=== PATIENT | female | born 1955 | race Caucasian/White ===

== ENCOUNTER 2024-12-09 16:51 | Emergency (ER) | payer OTHER, SELFPAY ==
[2024-12-09 16:55] VITALS: BP 151/95
[2024-12-09 19:15] VITALS: BP 149/88
--- NOTE | 2024-12-09 19:20 | ED.GENMED ---
History of Present Illness
General
Chief Complaint: DVT/Possible Blood Clot
Time Seen by Provider: 12/09/24 17:14
History of Present Illness
History of Present Illness:
69-year-old female with history of A-fib on Eliquis presenting to the emergency department for left lower extremity leg swelling. Patient reports swelling since last evening. Does report that she ate a salty meal, and does often get swelling when
she eats salt. She has a chronic skin discoloration to the medial aspect of the calf from a prior cat bite. She touched it last night, and this morning noticed some swelling and pain. Denies any blood clot. Does report recent travel, came home
from [place] 3 days ago. Denies chest pain or difficulty breathing. She went to urgent care prior to arrival and they advised that she come to the hospital for rule out DVT. She denies fever. She denies numbness or tingling. She denies
additional acute medical complaints
Past History
Past History
ED Past Medical History: Arrthythmia (afib), HTN, NIDDM and Other (PAULINA)
ED Past Surgical History: Gynecological (DAYSI/BSO) and Tonsilectomy
Social History
Tobacco: Non-smoker
Alcohol: Occasional
Personal:
Phy Exam
Physical Exam
Physical Exam:
General: Well-appearing, no clinical signs of dehydration, nontoxic and in no acute distress
HEENT: protecting airway
Neck: appears supple
CV: Normal heart rate
Resp: No accessory muscle use, no increased work of breathing
Abd: no distension
Extremities: Increased swelling to the left lower extremity in comparison to the right, pitting. No erythema or warmth area at the distal medial calf with some chronic skin discoloration and mild tenderness on palpation. Distal sensation and
pulses intact
Neuro: alert, no focal neurologic deficit
: deferred
Rectal: deferred
Psych: Normal affect
Skin: Intact
Course
Orders/Labs/Results
Orders:
Orders
12/09/24 17:36
US Periph Venous LOWER Ext LT Urgent
Comment:
Reason For Exam: swelling and pain
Vital Signs
Initial and Last Documented VS:
Initial Vital Signs
Temp Pulse Resp BP Pulse Ox
98.4 F 85 18 151/95 96
12/09/24 16:55 12/09/24 16:55 12/09/24 16:55 12/09/24 16:55 12/09/24 16:55
Last Documented Vital Signs
Temp Pulse Resp BP Pulse Ox
98.4 F 67 18 149/88 98
12/09/24 16:55 12/09/24 19:15 12/09/24 19:15 12/09/24 19:15 12/09/24 19:15
MDM/Problems Addressed
MDM/Problems Addressed:
69-year-old female with history of A-fib on Eliquis presenting for swelling to the left lower extremity. Vital signs are significant for mild hypertension.
On exam patient is resting comfortably dressed for discomfort. Patient does have some asymmetric swelling to left lower extremity in comparison to the right. No significant erythema or warmth. No infectious findings. Distal sensation and pulses
are intact without concern for neurovascular compromise. No signs of trauma, no report of trauma, without concern for fracture or malalignment. Focal tenderness to area of prior Bite and skin discoloration. Suspect possible superficial phlebitis.
Lower suspicion for DVT given focality of discomfort, as well as anticoagulation status. However, given asymmetrical nature, will screen with DVT ultrasound
19:00 -patient's ultrasound is negative for DVT. There is mention of a small fluid collection at area of patient's discomfort, with differential considerations being a hematoma versus abscess. Without present concern for abscess, again no
infectious findings. Suspect mild contusion versus hematoma. At this time feel stable for discharge with outpatient supportive therapy. Strict return precautions were communicated to patient who verbalized understanding
*Critical Care Note
Total Time (30-74mins, 75-104mins- exclusive of procedures): Not Applicable
ED Attending Note
-
Portions of this chart may have been created with voice recognition software.� Occasional wrong word or��sound alike� substitutions may have occurred due to the inherent limitations of voice recognition software.
Discharge Plan
Departure
Patient Disposition: Home (Routine Discharge)
Date of Disposition: 12/09/24
Time of Disposition: 19:18
Patient with high blood pressure during this ER visit?: Yes
Condition: Good
Discharge Problem:
Localized swelling of left lower leg, Hematoma and contusion
Instructions: BLOOD PRESSURE, Hematoma
Prescriptions:
No Action
lisinopril 20 MG tablet
10 mg PO DAILY
diltiazem HCl 240 MG capsule,extended release 24hr
240 mg PO DAILY Qty: 30 11RF
garlic 1,000 MG capsule
1,000 mg PO DAILY
flaxseed oil 1,000 MG capsule
1,000 mg PO DAILY
alpha lipoic acid 200 MG capsule
200 mg PO DAILY
Tumeric 1,000 MG Capsule
1,000 mg PO Daily
epinephrine [EpiPen] 0.3 MG/0.3/SYRINGE auto-injector
0.3 mg IM PRN PRN (Reason: sob)
apixaban [Eliquis] 5 MG tablet
5 mg PO BID
furosemide 40 MG tablet
40 mg PO DAILY PRN (Reason: swelling)
Referrals:
Fredi Schreiber MD [Family Provider] -
Stand Alone Forms: Return to Work
Activity Restrictions/Additional Instructions:
You were seen in the emergency department for swelling to your left lower extremity
You were found to have an ultrasound that was negative for a DVT. There was a small area of suspected hematoma. Please keep your legs elevated and return with any increased swelling or redness, which would be concerning for infection
Please follow-up closely with your primary care physician.
Return to the emergency department for any worsening of your symptoms, or any development of chest pain, difficulty breathing, abdominal pain with persistent vomiting and inability to tolerate food or liquid by mouth (concern for dehydration),
weakness, headache or confusion, fever greater than 100.4, or any additional symptoms that are concerning to you.
Thank you for choosing [facility].
Interventions
Interventions:
*Risk Screen - Suicide Last Done: 12/09/24 16:55
*General Assessment Last Done: 12/09/24 16:55
*Neglect/Abuse Screening Last Done: 12/09/24 16:55
*ED- Fall Risk Assessment Last Done: 12/09/24 19:26
*ED COVID-19 Vaccine History Last Done: 12/09/24 19:26
*Nursing Disposition Last Done: 12/09/24 19:26
ED- Cardiac Assessment Last Done: 12/09/24 18:05
ED- Pulmonary Assessment Last Done: 12/09/24 18:05
ED-Peripheral Vascular Assessment Last Done: 12/09/24 18:05
ED-Skin Assessment Last Done: 12/09/24 18:05
Discharge Date and Time
Print Language: [id number]
== END 2024-12-09 19:27 | disposition home or self-care (01) ==
LOC: EMR 16:51
PROVIDERS: EMERGENCY PHYSICIAN Student in an Organized Health Care Education/Training Program; FAMILY PHYSICIAN Internal Medicine
DX: R22.42 Localized swelling, mass and lump, left lower limb (principal); S80.12XA Contusion of left lower leg, initial encounter; X58.XXXA Exposure to other specified factors, initial encounter; I48.91 Unspecified atrial fibrillation; E11.9 Type 2 diabetes mellitus without complications; G47.33 Obstructive sleep apnea (adult) (pediatric); I10 Essential (primary) hypertension; Z79.01 Long term (current) use of anticoagulants; Z90.710 Acquired absence of both cervix and uterus; Z90.722 Acquired absence of ovaries, bilateral
CPT/HCPCS: 99284; 93971